=== PATIENT | male | born 1960 | race Two or more races ===

== ENCOUNTER 2024-08-24 10:34 | Emergency (ER) | payer MEDICARE, MEDICAID, SELFPAY ==
[2024-08-24 11:03] VITALS: BP 110/71; PULSE 94; RESP 18; TEMP 37.2; O2SAT 94; BMI 26.2
--- NOTE | 2024-08-24 11:03 | XR_ITS ---
Examination: PA lateral chest 2 views TECHNIQUE: Upright PA lateral chest 2 views Exam date and time: August 24, 2024 1111 hours Comparison April 11, 2023 INDICATIONS: Coughing shortness of breath beginning 2 days ago. FINDINGS: Early pneumonia left base Basilar bronchitis pattern Normal heart size No pulmonary edema Moderate osteopenia IMPRESSION: Early pneumonia left base
--- NOTE | 2024-08-24 11:03 | PD.EDURI ---
Upper Respiratory Inf. RME/HPI General Chief Complaint: Flu Like Symptoms Stated Complaint: COUGH, FEVER X10 DAYS Time Seen by Provider: 08/24/24 11:04 Source: patient Arrival date/time: 08/24/24 10:34 64-year-old male with a history of hypertension presents to the emergency room with a chief complaint of cough and intermittent fevers x 10 days Mode of arrival: ambulatory Limitations: no limitations Related Data Home Medications ?Medication ?Instructions ?Recorded ?Confirmed lisinopril 10 mg tablet 10 mg PO QDAY #0 tabs 12/08/16 01/15/23 doxazosin 8 mg tablet 8 mg PO QDAY 01/15/23 01/15/23 tamsulosin 0.4 mg capsule (Flomax) 0.4 mg PO BID 01/15/23 01/15/23 Previous Rx's ?Medication ?Instructions ?Recorded amoxicillin 875 mg-potassium 1 tab PO BID 7 days #14 tabs 08/24/24 clavulanate 125 mg tablet Allergies Allergy/AdvReac Type Severity Reaction Status Date / Time No Known Allergies Allergy Verified 04/11/23 18:43 Review of Systems Review of Systems Systems Reviewed: All systems reviewed, normal except as documented Constitutional Constitutional: Reports system reviewed and no additional complaints, except as documented, Denies fatigue, Denies fever(s), Denies headache(s) and Denies weakness Eyes Eyes: Reports system reviewed and no additional complaints, except as documented, Denies blurry vision and Denies change in vision ENT Ears, Nose, Mouth, and Throat: Reports system reviewed and no additional complaints, except as documented, Denies otalgia, Denies headache(s), Denies nasal congestion, Denies throat swelling and Denies vertigo Cardiovascular Cardiovascular: Reports system reviewed and no additional complaints, except as documented, Denies chest pain, Reports dyspnea and Denies dyspnea on exertion Respiratory Respiratory: Reports system reviewed and no additional complaints, except as documented, Denies chest congestion, Reports cough, Reports dyspnea, Denies dyspnea on exertion and Reports wheezing Gastrointestinal Gastrointestinal: Reports system reviewed and no additional complaints, except as documented, Denies abdominal pain, Denies cramping, Denies nausea and Denies vomiting Genitourinary Genitourinary: Reports system reviewed and no additional complaints, except as documented, Denies dysuria and Denies hematuria Musculoskeletal Musculoskeletal: Reports system reviewed and no additional complaints, except as documented and Denies back pain Integumentary/Breasts Skin/Breast: Reports system reviewed and no additional complaints, except as documented and Denies wounds Neurologic Neurologic: Reports system reviewed and no additional complaints, except as documented, Denies confusion, Denies headache(s), Denies lack of coordination, Denies vertigo and Denies weakness Psychiatric Psychiatric: Reports system reviewed and no additional complaints, except as documented, Denies anxiety, Denies confusion, Denies depression, Denies paranoia, Denies suicidal ideation and Denies tactile hallucinations Endocrine Endocrine: Reports system reviewed and no additional complaints, except as documented and Denies fatigue Hematologic/Lymphatic Hematologic/Lymphatic: Reports system reviewed and no additional complaints, except as documented and Denies lymphadenopathy Allergic/Immunologic Allergic/Immunologic: Reports system reviewed and no additional complaints, except as documented, Denies throat swelling, Denies urticaria and Reports wheezing Past Medical History Past Medical History NEUROLOGIC: Negative Neurological Disorders or Seizures CARDIAC: Positive Cardiac Disorders and Hypertension; Negative Congestive Heart Failure RESPIRATORY: Negative Chronic Obstructive Pulmonary Disease (COPD) GASTROINTESTINAL: Positive Gastrointestinal Disorders and Hiatal Hernia GENITOURINARY: Positive Genitourinary Disorders and Benign Prostatic Hyperplasia; Negative Renal Disease MUSCULOSKELETAL: Negative Musculoskeletal Disorders ENDOCRINE: Negative Endocrine Disorders, Diabetes Mellitus Type 1 or Diabetes Mellitus Type 2 HEMATOLOGIC: Negative Blood Disorders OTHER HISTORY: Negative Autoimmune Disease, Blood Transfusions, Anesthesia Reactions or Cancer Social History SMOKING STATUS: Former smoker ED Exam General Limitations: Present no limitations General appearance: Present alert and in no apparent distress Head Head exam: Present atraumatic Eye Eye exam: Present normal appearance, PERRL and EOMI ENT ENT exam: Present normal exam, normal oropharynx and mucous membranes moist Neck Neck exam: Present normal inspection, full ROM and trachea midline Chest Chest inspection: Present normal inspection and symmetric chest wall rise Respiratory Respiratory exam: Present normal lung sounds bilaterally and wheezes; Absent respiratory distress, stridor, accessory muscle use or prolonged expiratory phase Expanded Respiratory Exam Location: Left: wheezes, Right: wheezes and Lower: wheezes Cardiovascular Cardiovascular exam: Present regular rate, normal rhythm and normal heart sounds Abdominal Exam Abdominal exam: Present soft and normal bowel sounds Extremities Exam Extremities exam: Present normal inspection and full ROM Back Exam Back exam: Present normal inspection and full ROM Neurological Exam Neurological exam: Present alert, oriented X3 and CN II-XII intact Psychiatric Psychiatric exam: Present normal affect and normal mood Skin Skin exam: Present warm, dry, intact and normal color Course Quality Measures none Orders Category Date Time Status Bedside COVID-19 Antigen Test NOW Care 08/24/24 11:03 Completed Bedside Influenza A&B Antigen Test NOW Care 08/24/24 11:03 Completed XR chest 2V Stat Exams 08/24/24 11:03 Completed Albuterol/Ipratr Rt Nadine [Duoneb Rt Nadine] Med 08/24/24 11:03 Discontinued 3 ml INH X1 ONE Dexamethasone Inj [Decadron Inj] Med 08/24/24 11:03 Discontinued 10 mg PO X1 ONE Vital Signs Vital signs: Vital Signs Temperature 98.9 F 08/24/24 11:03 Pulse Rate 94 08/24/24 11:03 Respiratory Rate 18 08/24/24 11:03 Blood Pressure 110/71 08/24/24 11:03 Pulse Oximetry (%) 94 L 08/24/24 11:03 Oxygen Delivery Method Room Air 08/24/24 11:03 O2 saturation 94% Upper Respiratory Infection MDM Narrative MDM Narrative:: 64-year-old male with a history of hypertension presents to the emergency room with a chief complaint of cough and intermittent fevers x 10 days clinically the patient appears nontoxic and in no apparent distress. Physical examination shows wheezing bilaterally to the lower lobes. The patient states has been feeling like this for the last 10 days but in the last couple of days he has been progressively getting worse. X-ray was completed and shows early pneumonia. The patient was reevaluated in 45 minutes after breathing treatment and steroids and the patient states he is having significant improvement to his symptoms patient was discharged and educated to follow-up with his primary care provider and return to the emergency room for any evidence of worsening signs or symptoms Patient data External records reviewed:: [facility] previous records Clinical information provided by:: patient Social determinants that could affect healthcare access:: none Patient has the following chronic illnesses:: Hypertension How is presenting disease/condition affected by chronic disease/condition?: exacerbated by Evaluation data The following diagnostics were reviewed and interpreted by me:: lab results and radiology exam(s) Lab and/or radiology exams considered but not ordered:: Labs and radiology exams considered and ordered Interpretation Summary: Chest [id number]: Early pneumonia left base Basilar bronchitis pattern Normal heart size No pulmonary edema Moderate osteopenia IMPRESSION: Early pneumonia left base Medications / Prescriptions Medications or Prescriptions considered but not ordered:: Medication given Medication administrations:: Medication Administration History Discontinued Medications Albuterol/Ipratropium (Albuterol/Ipratropium (Duoneb) Rt Nadine 3 Ml Nebu) 3 ml INH X1 ONE Stop: 08/24/24 11:04 Last Admin: 08/24/24 11:28 Dose: 3 ml Documented By: NELLIE Dexamethasone Sodium Phosphate (Dexamethasone Sod Phos Inj 10 Mg/Ml Vial) 10 mg PO X1 ONE Stop: 08/24/24 11:04 Last Admin: 08/24/24 11:25 Dose: 10 mg Documented By: DO Comments: po Medication given Consultations Consultation(s) initiated? (list below): No Diagnosis Upper Respiratory Differential Diagnosis: upper respiratory infection, sinusitis, viral infection, bronchitis, influenza, pharyngitis and other (Community-acquired pneumonia) Most likely diagnosis given after review of the tests above:: Community-acquired pneumonia Admission Indicated Admission indicated?: not indicated Admission Request Was there a request for admission?: No Disposition Plan Disposition Plan: Discharge Discharge Attestation Discharge Attestation: The patient and all family members were given an opportunity to ask questions and understood the discharge instructions. Discharge instructions specifically effects, indications for sooner follow up or return to the emergency department, and the expected course of current diagnosis. Patient condition: Stable Discharge Plan Plan Patient Disposition: HOME (Self Care) Disposition Comment: Stable Prescriptions/Referrals Prescriptions/Med Rec: New amoxicillin-pot clavulanate 875-125 mg tablet 1 tab PO BID 7 Days Qty: 14 0RF No Action lisinopril 10 MG tablet 10 mg PO QDAY Qty: 0 doxazosin 8 mg Tablet 8 mg PO QDAY tamsulosin [Flomax] 0.4 mg Capsule 0.4 mg PO BID Referrals: Nain Iniguez PA-C [Primary Care Provider] - In 1 week Problem List Clinical Impression: Community acquired pneumonia Patient/Caregiver Discharge Instructions Education Materials: ED Pneumonia (Adult) Additional Instructions: Luke un seguimiento con contreras proveedor de atenci?n primaria en las pr?ximas 24 a 48 horas. Se complet? la radiograf?a y muestra neumon?a. Los antibi?ticos se env?an a contreras farmacia por favor rec?jalos y t?melos alma se indica. Si hay evidencia de signos o s?ntomas que empeoran, regrese a la alma de emergencias de inmediato. Print Language: Yemeni Stand Alone Forms: Zoe Award Info., Patient Portal Info Letter PA/FINANCIAL SYSTEMS ANALYST Supervising Physician PA/FINANCIAL SYSTEMS ANALYST Supervising Physician: Dr. Ulloa
[2024-08-24] MEDS: DEXAMETHASONE SOD PHOS INJ 10 MG/ML VIAL PO (11:25)
[2024-08-24 11:28] VITALS: PULSE 75; RESP 20; O2SAT 99
[2024-08-24] MEDS: ALBUTEROL/IPRATROPIUM (Duoneb) RT SOL 3 ML NEBU INH (11:28)
== END 2024-08-24 12:08 | disposition home or self-care (01) ==
PROVIDERS: Emergency Provider Emergency Medicine; PCP Family Medicine
DX: J18.9 Pneumonia, unspecified organism (principal); Z87.891 Personal history of nicotine dependence
CPT/HCPCS: 71046; 87400; 87811; 94640; 99283; A9270; J1100

== ENCOUNTER 2024-08-28 12:05 | Emergency (ER) | payer MEDICARE, MEDICAID, SELFPAY ==
[2024-08-28 12:27] VITALS: BP 126/81; PULSE 94; RESP 20; TEMP 36.9; O2SAT 92; BMI 24.7
--- NOTE | 2024-08-28 12:36 | XR_ITS ---
Examination: PA lateral chest 2 views Technique: Upright PA lateral chest 2 views Exam date and time: August 28, 2024 1243 hrs. Comparison August 24, 2024 Indications: Coughing beginning 3 weeks ago. Findings: Basilar bronchitis versus early bronchopneumonia Normal heart size Mild osteopenia Impression: Bibasilar bronchitis versus early bronchopneumonia
--- NOTE | 2024-08-28 12:36 | EKG_ITS ---
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
[2024-08-28] MEDS: ALBUTEROL/IPRATROPIUM (Duoneb) RT SOL 3 ML NEBU INH ×2 (12:58→14:32)
[2024-08-28 12:59] VITALS: PULSE 86; RESP 18; O2SAT 98
[2024-08-28 13:10] LABS: Basophils % (Auto) 0 % (0-2.5); Eosinophils # (Auto) 0.4 Thou/mm3 (0.0-0.5); Eosinophils % (Auto) 6 % (0-10); Hematocrit 40.7 % (41.0-53.0); Hemoglobin 13.7 g/dL (13.5-16.0); Immature Granulocytes % (Auto) 0 % (0-0); Immature Granulocytes Auto 0.03 Thou/mm3 (0.00-0.00); Lymphocytes # (Auto) 1.3 Thou/mm3 (1.0-4.8); Lymphocytes % (Auto) 17 % (10-50); Mean Corpuscular HGB Conc 33.7 g/dl (31.0-37.0); Mean Corpuscular Hemoglobin 28.9 pg (25.0-35.0); Mean Corpuscular Volume 86 fL (80-100); Monocytes # (Auto) 0.7 Thou/mm3 (0.0-0.8); Monocytes % (Auto) 9 % (0-12); Neutrophils % (Auto) 67 % (37-80); Nucleated Red Blood Cell % 0 /100 WBC (0); Platelet Count 293 Thou/mm3 (140-440); RDW Standard Deviation 40.7 fL (35.1-43.9); Red Blood Count 4.74 Miln/mm3 (4.50-5.90); White Blood Count 7.5 Thou/mm3 (3.8-10.6)
[2024-08-28 13:30] LABS: B-Type Natriuretic Peptide < 20 pg/mL (0-100)
[2024-08-28 13:45] LABS: Alanine Aminotransferase 20 U/L (10-49); Albumin, Serum 4.2 gm/dL (3.4-4.8); Albumin/Globulin Ratio 1.4 (1.2-2.2); Alkaline Phosphatase 73 U/L (46-116); Anion Gap 7 (7-16); Aspartate Amino Transferase 14 U/L (0-34); BUN/Creatinine Ratio 10 Ratio (12-20); Bilirubin,Total 0.4 mg/dL (0.3-1.2); Blood Urea Nitrogen 8 mg/dL (9-23); Carbon Dioxide 28.7 mMol/L (20.0-31.0); Chloride 101 mMol/L (98-107); Creatinine (Component) 0.8 mg/dL (0.6-1.3); Estimated Creatinine Clearance 74.1 mL/min (>60); Globulin 2.9 gm/dL (2.3-3.5); Glucose 105 mg/dL (74-106); Osmolality,Calculated 272 (275-295); Potassium 3.9 mMol/L (3.4-5.1); Sodium 137 mMol/L (136-145); Total Protein 7.1 gm/dL (5.7-8.2); Troponin I < 0.002 ng/mL (0.0-0.045); eGFR > 60 See Note
[2024-08-28] MEDS: MethylPREDNISolone SOD SUCC 62.5 MG/ML 2ML VIAL 125 MG IM (13:58)
--- NOTE | 2024-08-28 14:08 | PD.EDURI ---
Upper Respiratory Inf. RME/HPI General Chief Complaint: Flu Like Symptoms Stated Complaint: COUGH x 3 WKS, SEEN 4 DAYS AGO Time Seen by Provider: 08/28/24 12:23 Source: patient Arrival date/time: 08/28/24 12:05 This is a 64-year-old male who presents to the emergency department with complaints of intermittent cough for 3 weeks. Reports wheezing and cough. Reports he was treated for pneumonia 4 days ago however still complaining of cough and wheezing. Denies chest pain or dyspnea, no BLE. Here requesting recheck on symptoms. Mode of arrival: ambulatory Related Data Home Medications ?Medication ?Instructions ?Recorded ?Confirmed lisinopril 10 mg tablet 10 mg PO QDAY #0 tabs 12/08/16 01/15/23 doxazosin 8 mg tablet 8 mg PO QDAY 01/15/23 01/15/23 tamsulosin 0.4 mg capsule (Flomax) 0.4 mg PO BID 01/15/23 01/15/23 Previous Rx's ?Medication ?Instructions ?Recorded albuterol sulfate 90 mcg/actuation 2 puff inhalation Q6H PRN 08/28/24 aerosol inhaler (Ventolin HFA) shortness of breath or wheezing #8.5 grams fluticasone propionate 220 1 puff inhalation BID 1 month #12 08/28/24 mcg/actuation HFA aerosol inhaler grams prednisone 20 mg tablet 40 mg (2 x 20 mg) PO QDAY 5 days 08/28/24 #10 tabs promethazine-DM 6.25 mg-15 mg/5 mL 5 ml PO Q6H PRN cough #118 mL 08/28/24 oral syrup Allergies Allergy/AdvReac Type Severity Reaction Status Date / Time No Known Allergies Allergy Verified 08/28/24 12:09 Review of Systems Review of Systems Systems Reviewed: All systems reviewed, normal except as documented Narrative Review of Systems: Gen: No fever, no chills, no weight loss EYES: No discharge, no visual changes, no pain HEENT: No ear pain, no congestion, no sore throat PULM: No shortness of breath, + cough, + congestion, + wheezing CV: No chest pain, no dyspnea on exertion, no palpitations GI: No nausea, no vomiting, no diarrhea, no pain, no constipation : No frequency, no urgency, no dysuria Musc/skel: No joint pain, no back pain Skin: No rash Psyc: No hallucinations, no depression Heme/Lymph: No easy bleeding or bruising tendencies Neuro: No weakness, no headache ED Exam Narrative Physical exam: General: Sittiing in Exam table in no acute distress, answering questions appropriately HENT: normocephalic, atraumatic, EOMI, PERRLA, moist mucous membranes Chest: chest wall is nontender Cardiac: regular rate and rhythm, normal S1 and S2, no murmurs, rubs, or gallops, capillary refill ?2 seconds Pulmonary: clear to auscultation bilaterally, no wheezing, crackles, or rhonchi. + Upper bronchial vestibular wheezing. Abdominal: active bowel sounds, soft, nontender, nondistended Neuro: A&OX3, CN II-XII intact, sensation grossly intact bilaterally in UE and LE. Skin: no rashes, no ecchymosis Ext: no lower extremity edema Course Quality Measures none Orders Category Date Time Status EKG (ED ONLY) *Do not use* NOW Care 08/28/24 12:36 Completed NPO STAT Care 08/28/24 12:36 Completed EKG (ED Only) Stat Exams 08/28/24 12:36 Draft XR chest 2V Stat Exams 08/28/24 12:36 Completed BNP [B-Type Natriuretic Peptide] Stat Lab 08/28/24 12:50 Completed CBC Stat Lab 08/28/24 12:50 Completed Comprehensive Metabolic Panel Stat Lab 08/28/24 12:50 Completed Troponin I Stat Lab 08/28/24 12:50 Completed Albuterol/Ipratr Rt Nadine [Duoneb Rt Nadine] Med 08/28/24 12:36 Discontinued 3 ml INH X1 ONE Albuterol/Ipratr Rt Nadine [Duoneb Rt Nadine] Med 08/28/24 14:18 Discontinued 3 ml INH X1 ONE Budesonide Rt [Pulmicort Rt Nadine] Med 08/28/24 14:17 Discontinued 0.5 mg INH X1 ONE MethylPREDNISolone.* [SoluMEDROL Inj] Med 08/28/24 13:45 Discontinued 125 mg IM X1 ONE Vital Signs Vital signs: Vital Signs Temperature 98.4 F 08/28/24 12:27 Pulse Rate 94 08/28/24 12:27 Respiratory Rate 20 08/28/24 12:27 Blood Pressure 126/81 08/28/24 12:27 Pulse Oximetry (%) 92 L 08/28/24 12:27 Oxygen Delivery Method Room Air 08/28/24 12:27 Upper Respiratory Infection MDM Narrative MDM Narrative:: Patient presenting with cough. Patient afebrile. Pulse ox was 92%. Mild bronchial vestibular sounds. Most consistent with bronchitis. Due to his recent ER visit and diagnosis of pneumonia Obtained a repeat chest x-ray reviewed no acute abnormalities or infiltrates, however bronchitis pattern. At this time, it is felt that the most likely explanation for the patient's symptoms is viral bronchitis. Discussed that antibiotics are unlikely to improve symptoms at this time. I also considered pneumonia, GERD, pneumothorax, PE but this appears less likely considering the data gathered thus far. I have instructed the patient to return to the ER at any time if there are any new or worsening symptoms. Discharge from ED. Prescribed albuterol?mcg/actuation q4hr prn for bronchospasm. Prescribed Pherergan w/ Codiene hours as needed for cough Prescribed prednisone burst 40 mg mg qd x5d. Instructed Pt to f/up w/ PCP or ETC should Sx worsen or not improve. Pt verbally expressed understanding and all questions were addressed to Patient data External records reviewed:: [facility] previous records Clinical information provided by:: patient Social determinants that could affect healthcare access:: none Patient has the following chronic illnesses:: no How is presenting disease/condition affected by chronic disease/condition?: caused by Evaluation data The following diagnostics were reviewed and interpreted by me:: lab results, radiology exam(s) and EKG tracing(s) Lab and/or radiology exams considered but not ordered:: no Interpretation Summary: Examination: PA lateral chest 2 views Technique: Upright PA lateral chest 2 views Exam date and time: August 28, 2024 1243 hrs. Comparison August 24, 2024 Indications: Coughing beginning 3 weeks ago. Findings: Basilar bronchitis versus early bronchopneumonia Normal heart size Mild osteopenia Impression: Bibasilar bronchitis versus early bronchopneumonia Medications / Prescriptions Medications or Prescriptions considered but not ordered:: no Medication administrations:: Medication Administration History Discontinued Medications Albuterol/Ipratropium (Albuterol/Ipratropium (Duoneb) Rt Nadine 3 Ml Nebu) 3 ml INH X1 ONE Stop: 08/28/24 12:37 Last Admin: 08/28/24 12:58 Dose: 3 ml Documented By: RON Albuterol/Ipratropium (Albuterol/Ipratropium (Duoneb) Rt Nadine 3 Ml Nebu) 3 ml INH X1 ONE Stop: 08/28/24 14:19 Last Admin: 08/28/24 14:32 Dose: 3 ml Documented By: RON Budesonide (Budesonide Rt 0.5 Mg/2 Ml Nebu) 0.5 mg INH X1 ONE Stop: 08/28/24 14:18 Last Admin: 08/28/24 14:32 Dose: 0.5 mg Documented By: HayleyT Methylprednisolone Sodium Succinate (Methylprednisolone Sod Succ 62.5 Mg/Ml 2ml Vial) 125 mg IM X1 ONE Stop: 08/28/24 13:46 Last Admin: 08/28/24 13:58 Dose: 125 mg Documented By: All medications administered and effective Consultations Consultation(s) initiated? (list below): No Diagnosis Upper Respiratory Differential Diagnosis: upper respiratory infection, croup, otitis media, viral infection, bronchitis and influenza Most likely diagnosis given after review of the tests above:: Bronchitis Admission Indicated Admission indicated?: not indicated Admission Request Was there a request for admission?: No Disposition Plan Disposition Plan: Discharge Discharge Attestation Discharge Attestation: The patient and all family members were given an opportunity to ask questions and understood the discharge instructions. Discharge instructions specifically effects, indications for sooner follow up or return to the emergency department, and the expected course of current diagnosis. Patient condition: Stable Discharge Plan Plan Patient Disposition: HOME (Self Care) Patient condition on transfer: Stable Prescriptions/Referrals Prescriptions/Med Rec: New prednisone 20 mg tablet 40 mg PO QDAY 5 Days Qty: 10 0RF albuterol sulfate [Ventolin HFA] 90 mcg/actuation HFA aerosol inhaler 2 puff inhalation Q6H PRN (Reason: shortness of breath or wheezing) Qty: 8.5 0RF fluticasone propionate 220 mcg/actuation HFA aerosol inhaler 1 puff inhalation BID 30 Days Qty: 12 0RF promethazine-DM 6.25-15 mg/5 mL syrup 5 ml PO Q6H PRN (Reason: cough) Qty: 118 0RF No Action lisinopril 10 MG tablet 10 mg PO QDAY Qty: 0 doxazosin 8 mg Tablet 8 mg PO QDAY tamsulosin [Flomax] 0.4 mg Capsule 0.4 mg PO BID Referrals: Nain Iniguez PA-C [Primary Care Provider] - In 1 week Problem List Clinical Impression: Bronchitis Patient/Caregiver Discharge Instructions Discharge Activity: activity as tolerated Education Materials: ED Bronchitis, No Antibiotic (Adult) Additional Instructions: Por favor, consulte con contreras m?dico de cabecera o cl?mee en 2 a 3 d?as para recibir atenci?n de seguimiento. Por favor, use ramana inhaladores seg?n las indicaciones. Medicaci?n con esteroides myriam 5 d?as. Jarra para la tos solo para suprimir la tos. Regrese al departamento de emergencias si los s?ntomas empeoran o si tiene alguna afecci?n. Please follow-up with your primary doctor or clinic in 2 to 3 days for follow-up care. Please use your inhalers as directed. Steroid medication for 5 days. Cough syrup only for cough suppression. Return to the emergency department this any worsening symptoms any condition. Print Language: Croatian Stand Alone Forms: Zoe Award Info., Patient Portal Info Letter OSKAR/NAYAN Supervising Physician OSKAR/NAYAN Supervising Physician: Dr Love
[2024-08-28 14:32] VITALS: PULSE 85; RESP 18; O2SAT 99
[2024-08-28] MEDS: BUDESONIDE RT 0.5 MG/2 ML NEBU INH (14:32)
== END 2024-08-28 14:49 | disposition home or self-care (01) ==
PROVIDERS: Nurse Practitioner Primary Care; Emergency Provider Emergency Medicine; PCP Family Medicine
DX: J40 Bronchitis, not specified as acute or chronic (principal)
CPT/HCPCS: 36415; 71046; 80053; 83880; 84484; 85025; 94640; 96372; 99284; A9270; J2919